=== PATIENT | female | born 1990 | race Caucasian/White ===

== ENCOUNTER 2020-09-10 00:20 | Outpatient (CLI) | payer BC, SELFPAY ==
[2020-09-10 18:50] LABS: SARS-CoV-2 RNA PCR Negative
== END 2020-09-10 00:21 | disposition home or self-care (01) ==
LOC: ANHCOVIDDT 00:20
PROVIDERS: Anesthesiology; PCP Student in an Organized Health Care Education/Training Program; Visit Provider Surgery
DX: Z01.818 Encounter for other preprocedural examination (principal); Z20.828 Contact with and (suspected) exposure to other viral communicable diseases
CPT/HCPCS: C9803; U0003

== ENCOUNTER 2020-09-10 09:06 | Outpatient (CLI) | payer BC, SELFPAY ==
--- NOTE | 2020-09-10 09:08 | ECG_ITS ---
Measurements Intervals [place] Rate: 71 P: 54 WV: 147 QRS: 71 QRSD: 74 T: 25 QT: 381 QTc: 416 Interpretive Statements SINUS RHYTHM BORDERLINE R WAVE PROGRESSION, ANTERIOR LEADS BASELINE ARTIFACT- I, III, AVR, AVL, AVF, V1-V6 BORDERLINE ECG Electronically Signed On 09-10-2020 9:17:49 [employer] by Ulices Donohue D.O.
== END 2020-09-10 09:07 | disposition home or self-care (01) ==
PROVIDERS: PCP Student in an Organized Health Care Education/Training Program; Visit Provider Surgery
DX: Z01.818 Encounter for other preprocedural examination (principal); I49.8 Other specified cardiac arrhythmias; R94.31 Abnormal electrocardiogram [ECG] [EKG]
CPT/HCPCS: 93005

== ENCOUNTER 2020-09-13 00:52 | Day surgery (SDC) | payer BC, SELFPAY ==
[2020-09-04 13:34] VITALS: BMI 26.5
--- NOTE | 2020-09-12 11:12 | P.PNAN_ITS ---
Anes - Initial Pre Proc Eval Procedure: Operation Date: 09/13/20 07:30 Proposed Procedures p Open Umbilical Hernia Repair With Mesh - Inocencia Francis MD Date/Time: 09/12/20 11:12 Surgeon: Inocencia Francis MD Pre Op Diagnosis: Umbilical Hernia Patient Data Age: 29 Gender: F Height: 1.57 m Weight: 65.77 kg Allergies Allergy/AdvReac Type Severity Reaction Status Date / Time amoxicillin AdvReac Mild Rash Verified 09/13/20 06:57 Home Medications Medication Instructions Recorded Confirmed Type metoprolol tartrate 25 mg tablet 25 mg PO HS 08/23/20 09/04/20 History sertraline 100 mg tablet 100 mg PO HS 08/23/20 09/04/20 History Patient hx anesthesia problems: none Family hx anesthesia problems: none [facility] Past Medical History Medical History (Updated 09/12/20 @ 11:12 by Otilio Gomez DO) Anxiety POTS (postural orthostatic tachycardia syndrome) PTSD (post-traumatic stress disorder) Tachycardia Surgical History Surgical History History of surgical removal of skin lesion Family History Family History Father Diabetes mellitus Heart disease Hypertension Mother Asthma Diabetes mellitus Heart disease Hypertension Skin cancer Grandparent Heart disease Social History Social History Smoking packs per day: 0.5 Smoking cigarettes per day: 10.0 Years smoked: 14 Smoking pack-years: 7.00 Smoking status: Former smoker Tobacco type: e-cigarettes/vaping Second hand tobacco smoke exposure: No Smoking end date: 09/07/17 Additional smoking assessment comments: CURRENTLY VAPES Alcohol intake: unknown Substance use: never Substance use type: does not use Living arrangements: with family Additional occupation/education comments: Supervisor [employer] Spiritual care concerns: No Anes - Eval Final PreProcedure Day of Procedure 09/12/20 11:12 Patient weight: overweight Heart: regular rate and rhythm Lungs: clear to auscultation and normal air movement Airway: Mallampati scale class II Neurological: alert and oriented Last oral intake: >/= 8 hours ASA classification: III Emergent: no Anesthetic plan: proceed Anesthesia type and monitoring: general ETT and standard monitoring Informed Consent: The patient's anesthetic plan and its attendant risks and benefits were discussed with the patient/family/POA. Questions were solicited and answers provided to the satisfaction of the patient/family/POA.
[2020-09-13] VITALS (10 sets, daily range): BP systolic 96–115; BP diastolic 57–74; PULSE 68–83; RESP 12–20; TEMP 36.3–36.9; O2SAT 92–100
[2020-09-13] MEDS: ACETAMINOPHEN 500 MG TABLET 1000 MG PO (07:04)
[2020-09-13] MEDS: LACTATED RINGERS 1,000 ML 30 ML IV CONT ×2 (07:10→09:01)
[2020-09-13] MEDS: KETOROLAC 15 MG/ML VIAL (*BKC) IV PUSH (07:10)
--- NOTE | 2020-09-13 07:22 | WPDHPUPDATE1 ---
History and Physical Update Update Date/Time: 09/13/20 07:22 History and Physical has been reviewed, including an updated exam of the patient. There are NO changes in the patient's condition. Risks, benefits, and alternatives have been discussed and questions answered. Patient agrees to proceed with procedure.
[2020-09-13] MEDS: ceFAZolin 2 GM/D5W 50 ML 2 GM/50 ML BAG IVPB (07:28)
[2020-09-13] MEDS: BUPIVACAINE HCL 0.5% PF 30 ML VIAL INFILTRATE (07:54)
--- NOTE | 2020-09-13 08:20 | PM.PROC ---
Procedure Note - Detailed Date of procedure: 09/13/20 Pre-op diagnosis: Umbilical Hernia Post-op diagnosis: other (incarcerated umbilical hernia) Procedure performed: Repair of incarcerated umbilical hernia with ventral patch in the underlay position Description of procedure: The patient was taken to the operating room and placed in the supine position. After adequate induction of general anesthesia, the patient was prepped and draped in the normal sterile fashion. A time-out was then done to verify the patient's identity, as well as the procedure being performed. I began by making a curvilinear incision under the umbilicus. This incision was taken down to the level of the fascia. I then was able to get around the hernia umbilicus complex superiorly. I then the umbilicus off the hernia. The hernia was noted to contain incarcerated fat and omentum. The contents of the hernia looked to be viable and I was able to reduce this back into the peritoneal cavity. I then excised the hernia sac. The defect was noted to measure just over 2 cm. Given this, I placed a 4.6 cm ventral patch in the underlay position. This was sutured in with 0 Ethibond sutures. Once done, I closed the overlying fascia with interrupted 0 Ethibond sutures. I then reapproximated the umbilicus to our fascial repair using a 3 0 Vicryl U-stitch. The subcutaneous tissue was closed with 3 0 Vicryl suture. The skin was then closed with 4 O Monocryl subcuticular suture. Dermabond was placed on the wound. The patient tolerated the procedure well and was extubated in the operating room postoperatively. She will be sent to the recovery room in stable condition. Implants: 4.6 cm ventral mesh in underlay position Anesthesia: GETA Surgeon: Inocencia Francis MD Estimated blood loss (mL): 5 Drains: No Packing: No Pathology: none sent Complications: No immediate complications Condition: stable Disposition: PACU Findings: Incarcerated umbilical hernia with both preperitoneal fat and omentum
[2020-09-13] MEDS: fentaNYL CITRATE INJ (*CRX) 100 MCG/2 ML VIAL 25 MCG IV PUSH ×4 (08:56→09:12)
[2020-09-13] MEDS: oxyCODONE HCL (*CRX) 5 MG TAB IR PO (10:46)
== END 2020-09-13 10:55 | disposition home or self-care (01) ==
PROVIDERS: PCP Student in an Organized Health Care Education/Training Program; Visit Provider Surgery
PROC: (CPT 49587; principal; 2020-09-13 07:30)
DX: K42.0 Umbilical hernia with obstruction, without gangrene (principal); F41.9 Anxiety disorder, unspecified; F43.10 Post-traumatic stress disorder, unspecified; I49.8 Other specified cardiac arrhythmias; F17.290 Nicotine dependence, other tobacco product, uncomplicated
CPT/HCPCS: 49587; A9270; C1781; J0690; J1100; J1170; J1200; J1885; J2001; J2250; J2405; J2704; J2710; J3010; J7120

== ENCOUNTER 2021-03-29 08:29 | Outpatient (CLI) | payer BC, SELFPAY ==
[2021-03-29 09:00] LABS: Basophils Absolute Auto 0.1 K/mm3 (0.0-0.1); Basophils Percent Auto 0.5 % (0.2-1.2); Eosinophils Absolute Auto 0.1 K/mm3 (0-0.3); Eosinophils Percent Auto 0.9 % (0-4.4); Hematocrit 39.9 % (37.0-47.0); Immature Granulocyte Absolute 0.02 K/mm3 (0.00-0.031); Immature Granulocyte Percent A 0.2 % (0-0.5); Lymphocytes Absolute Auto 2.23 K/mm3 (0.9-3.2); Lymphocytes Percent Auto 24.4 % (18.3-44.2); Mean Corpuscular HGB Conc 32.6 g/dl (32-36); Mean Corpuscular Hemoglobin 30.2 pg (26-34); Mean Corpuscular Volume 92.8 fl (80-100); Mean Platelet Volume 8.5 fl (7.4-10.4); Monocytes Absolute Auto 0.8 K/mm3 (0.1-0.6); Monocytes Percent Auto 9.2 % (2.6-8.5); Neutrophils Absolute Auto 5.9 K/mm3 (1.3-6.7); Neutrophils Percent Auto 64.8 % (45.5-73.1); Platelet Count Result 281 k/mm3 (150-375); Red Cell Distribution Width 13.2 % (11.5-14.5); White Blood Count 9.1 K/mm3 (4.5-10.0)
[2021-03-29 09:10] LABS: Alanine Aminotransferase 12 U/L (4-35); Alkaline Phosphatase 78 U/L (38-126); Anion Gap 9 mmol/L (8-16); Aspartate Amino Transferase 22 U/L (14-36); Bilirubin,Total 0.3 mg/dL (0.2-1.3); Blood Urea Nitrogen 13 mg/dL (7-17); Calcium 9.1 mg/dL (8.4-10.2); Carbon Dioxide 26 mmol/L (22-30); Chloride 104 mmol/L (98-107); Cholesterol 209 mg/dL (0-200); Estimated Glomerular Filt Rate > 60; Glucose 98 mg/dL (65-110); HDL Direct 55 mg/dL; Potassium 4.2 mmol/L (3.4-5.0); Sodium 139 mmol/L (137-145); Triglycerides 111 mg/dL (<150)
[2021-03-29 09:20] LABS: LDL Cholesterol Direct 102 mg/dL
[2021-03-29 11:48] LABS: Hepatitis C Virus Antibody Negative (Negative)
[2021-03-29 12:43] LABS: Vitamin D 25 Hydroxy 48.9 ng/mL
[2021-03-29 12:57] LABS: Thyroid Stimulating Hormone Reflex 0.889 uIU/mL (0.465-4.68)
== END 2021-03-29 08:30 | disposition home or self-care (01) ==
PROVIDERS: PCP Student in an Organized Health Care Education/Training Program; Visit Provider Student in an Organized Health Care Education/Training Program
DX: Z00.00 Encounter for general adult medical examination without abnormal findings (principal); Z13.29 Encounter for screening for other suspected endocrine disorder; Z13.228 Encounter for screening for other metabolic disorders; Z13.0 Encounter for screening for diseases of the blood and blood-forming organs and certain disorders involving the immune mechanism; E55.9 Vitamin D deficiency, unspecified; Z11.59 Encounter for screening for other viral diseases
CPT/HCPCS: 36415; 80053; 80061; 82306; 84443; 85025; 86803